=== PATIENT | female | born 2000 | race Caucasian/White ===

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

== ENCOUNTER → 2024-01-28 | Outpatient (CLI) | payer BC ==
--- NOTE | 2024-01-29 02:44 | US ---
EXAMINATION TYPE: US renal artery duplex complet DATE OF EXAM: 01/28/2024 COMPARISON: NONE CLINICAL INDICATION: Female, 23 years old with history of Q27.1 CONGENITAL RENAL ARTERY STENOSIS; HTN MEASUREMENTS: RENAL SIZE: Right Kidney: 10.1 x 3.3 x 5.4cm Left Kidney: 10.7 x 3.7 x 4.7cm Right Kidney: no evidence of hydronephrosis or mass Left Kidney: no evidence of hydronephrosis or mass Abd Aorta: unremarkable RESISTANCE INDEX Right: 0.57 Left: 0.60 RA/AO RATIO (< 3.5 ) Right: 1.6 Left: 1.6 RENAL ARTERY VELOCITY ( < 180 cm/s) Right: 223.8cm/s Left: 230.2cm/s [place] Operator Notes: Aorta and kidneys appear unremarkable. Velocities appear mildly elevated bilatera l renal arteries IMPRESSION: Bilateral elevated renal artery velocities with normal renal artery to aorta ratios. Further evaluati on with CTA abdomen is recommended.
== END | disposition home or self-care (01) ==
LOC: RADUSWWP 07:17
PROVIDERS: ATTEND Internal Medicine Clinical Cardiac Electrophysiology
DX: Q27.1 Congenital renal artery stenosis (principal)
CPT/HCPCS: 93975

== ENCOUNTER → 2024-04-07 | Outpatient (CLI) | payer BC ==
[2024-04-07 14:11] LABS: African American GFR (CKD) >90 (>60 ml/min/1.73 sqM); Blood Urea Nitrogen 9 mg/dL (7-17); Non-African American GFR(CKD) >90 (>60 ml/min/1.73 sqM)
--- NOTE | 2024-04-07 15:18 | CT ---
CTA thorax and abdomen HISTORY: Hypertension, rule out coarctation of aorta. COMPARISON: None TECHNIQUE: Multiple axial images obtained to the thorax and abdomen following uneventful administrati on of nonionic IV contrast. The exam was performed according to the department CTPA protocol. 3-D pos tprocessing was performed. FINDINGS: The thoracic and abdominal aorta is normal in caliber and there is no coarctation, aneurysm or stenos is. Chest findings: The lungs are clear and there is no suspicious lung mass or nodule. There is no airspace consolidatio n or abnormal interstitial density. There is no pleural effusion, pleural thickening or pneumothorax. There is no mediastinal, hilar or axillary adenopathy. The osseous structures are intact. CT abdomen and pelvis findings: There is no focal mass or organomegaly of the solid visceral organs of the upper abdomen. The gallbl adder is normal. No solid renal mass or nephrosis. The bowel loops normal in caliber and no dilatation, inflammation or obstruction. No free intraperito sheri air or fluid. No pelvic mass or adenopathy. The osseous structures are intact. IMPRESSION: No significant abnormality seen.
== END | disposition home or self-care (01) ==
LOC: RADCTMAIN 12:55
PROVIDERS: ATTEND Internal Medicine Clinical Cardiac Electrophysiology
DX: Q25.1 Coarctation of aorta (principal); Q27.1 Congenital renal artery stenosis; D35.00 Benign neoplasm of unspecified adrenal gland; I10 Essential (primary) hypertension
CPT/HCPCS: 82533; 82565; 84520; 71275; 74175; Q9967